=== PATIENT | male | born 1970 | race Caucasian/White ===

== ENCOUNTER 2017-12-23 15:33 | Outpatient (REF) | payer BC, SELFPAY ==
[2017-12-23 19:16] LABS: Cholesterol 233 mg/dL (50-200); HDL Cholesterol 28 mg/dL (40-60); LDL CHOLESTEROL 188 mg/dL (<100); Triglyceride 121 mg/dL (30-150)
== END 2017-12-23 15:53 ==
LOC: NCHCN 15:33
PROVIDERS: PCP Specialist/Technologist Athletic Trainer; Visit Provider Family Medicine
DX: E78.5 Hyperlipidemia, unspecified (principal)
CPT/HCPCS: 80061; 83721

== ENCOUNTER → 2020-04-23 01:10 | Outpatient (CLI) | payer BC, SELFPAY ==
--- NOTE | 2020-04-23 | DI.RAD_ITS ---
EXAM: XR LUMBAR SPINE COMPLETE CLINICAL HISTORY: LUMBAR RADICULOPATHY,M54.16. TECHNIQUE: 2D digital imaging was performed. COMPARISON: No exams were available for comparison FINDINGS: There is no evidence of fracture or listhesis nor pars interarticularis defects. There is an element of disc space narrowing at each level in the lumbosacral spinal column, most prom inent at L5-S1 and L4-5 levels. Anterior osseous lipping is noted L1-2 and L2-3 levels. Mild avionics systems integration specialist ior bony ridging evident at L4-5. This may indicate an element of stenosis. Mild facet arthropathy. Sacroiliac joints exhibit mild increased density bilaterally but no ankylosis. IMPRESSION: Multilevel degenerative disc disease. Possible element of sacroiliitis here. DATA REPOSITORY: RADIATION DOSE DELIVERED:
--- NOTE | 2020-04-23 | DI.RAD_ITS ---
EXAM: XR KNEE RT 3V AP,LAT,CASIE CLINICAL HISTORY: RT KNEE PAIN, M25.561. TECHNIQUE: 2D digital imaging was performed. COMPARISON: No exams were available for comparison FINDINGS: There is no evidence fracture but there is small amount of increased joint fluid. There is significa nt narrowing of the medial compartment and marginal osteophytes of the medial compartment. Also some degenerative changes in the patellofemoral compartment. Lateral compartment appears unremarkable. No osseous lesions. Bone density is age-appropriate IMPRESSION: Degenerative changes. Small joint effusion. DATA REPOSITORY: RADIATION DOSE DELIVERED:
== END ==
PROVIDERS: PCP Family Medicine; Visit Provider Family Medicine
DX: M17.11 Unilateral primary osteoarthritis, right knee (principal); M25.461 Effusion, right knee; M47.816 Spondylosis without myelopathy or radiculopathy, lumbar region
CPT/HCPCS: 73562; 72110

== ENCOUNTER 2020-05-15 01:17 | Outpatient (CLI) | payer BC, SELFPAY ==
--- NOTE | 2020-05-15 09:30 | DI.MRI_ITS ---
EXAM: MR LUMBAR SPINE WO CLINICAL HISTORY: LUMBAR RADICULOPATHY,M54.16. TECHNIQUE: Multiplanar multisequence MRI was performed. COMPARISON: CT CHEST FOR PE, ABD PELVIS W from 01/13/2017 CT CHEST FOR PE, ABD PELVIS W from 01/13/2017 MR MRI - CERVICAL SPINE WO CONT from 03/10/2017 CR XR LUMBAR SPINE COMPLETE from 04/23/2020 FINDINGS: Conus medullaris appears normal. No suspicious bony lesions. The T11-12 and T12-L1 levels are unrem arkable. At L1-2 and L2-3,, there is mild to moderate loss of disc height. There are mild disc osteophytes. No central canal stenosis or neural foraminal narrowing. At L3-4, there is minimal concentric disc bulging. No neural foraminal narrowing or central canal st enosis. At L4-5, there is moderate loss of disc height and disc osteophytes projecting circumferentially. Th ere is mild bilateral neural foraminal narrowing. No significant central canal stenosis. At L5-S1, there is marked loss of disc height. There are circumferentially projecting osteophytes. There is no central canal stenosis. There is mild bilateral neural foraminal narrowing. IMPRESSION: Degenerative disc changes causing mild bilateral neural foraminal narrowing at L4-5 and L5-S1. No f ocal disc herniation. DATA REPOSITORY:
== END 2020-05-15 01:37 ==
PROVIDERS: PCP Family Medicine; Visit Provider Family Medicine
DX: M47.816 Spondylosis without myelopathy or radiculopathy, lumbar region (principal); M48.061 Spinal stenosis, lumbar region without neurogenic claudication
CPT/HCPCS: 72148

== ENCOUNTER 2020-08-26 08:43 | Outpatient (CLI) | payer BC, SELFPAY ==
--- NOTE | 2020-08-26 06:00 | DI.RAD_ITS ---
Exam(s) XR PAIN CLINIC LUMBAR SP 2V EXAM: XR PAIN CLINIC LUMBAR SP 2V CLINICAL HISTORY: Dx: Lumbar Radiculopathy. TECHNIQUE: Fluoroscopy was provided for the referring physician for guidance with performing injecti on procedure. COMPARISON: No exams were available for comparison FINDINGS: Please see procedure note for details. Fluoro time 33.6 seconds RADIATION DOSE DELIVERED: malu Sullivan= 14.67 mGy
[2020-08-26 08:54] VITALS: BP 148/90; PULSE 79; RESP 18; TEMP 37.3; O2SAT 98
[2020-08-26 09:46] VITALS: BP 142/94; PULSE 78; RESP 17; O2SAT 98
--- NOTE | 2020-08-26 09:47 | PDOC.PAIN ---
Pain Clinic Procedure Note Procedure Note Procedure Note: Lumbar Epidural Steroid Injection Procedure Note Pre-operative diagnosis: lumbar radiculopathy Post-operative diagnosis: same as above COMMENTS: patient has low back pain and right leg pain, right knee pain. he is followed by orthopedic clinic and is scheduled to have a dedicated right knee MRI. patient has MRI L spine finding of L4-5 disc height loss and circumferential osteophytes. Patient was evaluated by Ms Jerrica De Luna APRN in pain clinic and referred for a trial of L4-5 LESI for both diagnostic and possibly therapeutic purposes. patient is aware that he may have two pain generators - lumbar radicular symptoms and right knee pathology. EDITH ALAN has been referred to the [facility] for lumbar epidural steroid injection. The patient was greeted by the nurse who verified patients name and . Patient was then taken to the fluoroscopy suite. The patient was interviewed and the medial record reviewed. There were no medical, pharmacologic, radiographic, or other structural contraindications to attempting fluoroscopically guided lumbar epidural steroid injection. Risks and expected side effects as well as potential benefits of the procedure were reviewed and voiced concerns expressed. The patient consent form was signed and witnessed. Standard patient time-out procedure was performed. The patient was placed in the prone position on the fluoroscopy table and automated blood pressure cuff and pulse oximeter applied. The skin entry point for entering/approaching the epidural space by a L4-5 and marked. Following thorough chlorhexadine preparation of the skin and draping and 1% lidocaine infiltration of the skin entry point and subcutaneous tissues, a 18 gauge Touhy needle was placed under fluoroscopic guidance and with loss of resistance technique into the epidural space. Needle tip placement and depth were aided and confirmed by fluoroscopy. There was no paresthesia or return of blood or CSF through the needle. 1 cc's of Omnipaque 240 was injected with clear epidural spread confirmed with fluoroscopy. 80mg depomedrol was injected. There was not any unusual discomfort expressed by EDITH ALAN. Patient's vital signs were stable throughout the procedure and were as recorded in nursing records. Follow up plans and appointments were discussed with patient. Post procedure instruction was given as documented in nursing records and having met discharge criteria and was discharged from the [facility]. COMMENTS: If this procedure is helpful, it can be completed up to 3 times per 12 months. Pre-procedure VAS score 7 out of 10. Post-procedure VAS score 3/10 Jay Jay Rutledge MD Pain Management
[2020-08-26] MEDS: methylPREDNISolone ACETATE 80 MG/ML VIAL IJ (11:08)
[2020-08-26] MEDS: Omnipaque 240 MG/ML 50 ML BTL IJ (11:08)
== END 2020-08-26 08:44 | disposition home or self-care (01) ==
LOC: PC 08:44
PROVIDERS: PCP Family Medicine; Visit Provider Internal Medicine
DX: M54.16 Radiculopathy, lumbar region (principal)
CPT/HCPCS: 62323; 72100; J1040; Q9967

== ENCOUNTER → 2020-09-15 02:10 | Outpatient (CLI) | payer BC, SELFPAY ==
--- NOTE | 2020-09-15 06:45 | DI.MRI_ITS ---
Exam(s) MR LOWER JOINT RT WO EXAM: MR LOWER JOINT RT WO CLINICAL HISTORY: KNEE PAIN, PRIMARY OA RT KNEE, INTERNAL DERANGEMENT,M17.11,M23.91. TECHNIQUE: Multiplanar multisequence MRI was performed. COMPARISON: CR XR KNEE RT 3V AP,LAT,CASIE from 04/23/2020 FINDINGS: BONES: It there are osteophytes from the femoral condyles and tibial plateaus. There is high signal in these subchondral region of the medial femoral condyle and medial tibial plateau, consistent with degenerative signal changes. JOINTS: Articular cartilage of the medial femoral condyle and medial tibial plateau are thin, extendi ng down to bone. The cartilage overlying the lateral femoral condyle colonic, lateral tibial plateau and patella appear intact.. No effusion is present. TENDONS: Extensor mechanism: Unremarkable. Medial retinaculum: Unremarkable. Lateral retinaculum: Unremarkable. Popliteus: Unremarkable. MUSCLES: Unremarkable. MENISCI: The medial meniscus is peripherally displaced in the body and the posterior horn is diminuti ve findings are consistent with severe degenerative change.. The lateral meniscus is unremarkable. SOFT TISSUES: Unremarkable. LIGAMENTS: Anterior Cruciate: Unremarkable. Posterior Cruciate: Unremarkable. Medial Collateral:Unremarkable. Lateral Collateral: Unremarkable. IMPRESSION: Severe degenerative changes of the medial femoral tibial joint and medial meniscus. DATA REPOSITORY:
== END ==
PROVIDERS: PCP Family Medicine; Visit Provider Student in an Organized Health Care Education/Training Program
DX: M17.11 Unilateral primary osteoarthritis, right knee (principal); M23.91 Unspecified internal derangement of right knee
CPT/HCPCS: 73721

== ENCOUNTER 2021-03-12 11:30 | Outpatient (CLI) | payer BC, SELFPAY ==
[2021-03-12 11:36] VITALS: BP 136/90; PULSE 92; RESP 18; TEMP 37.3; O2SAT 97
--- NOTE | 2021-03-12 12:30 | DI.RAD_ITS ---
Exam(s) XR PAIN CLINIC LUMBAR SP 2V EXAM: XR PAIN CLINIC LUMBAR SP 2V CLINICAL HISTORY: Dx: Lumbar Spondylosis TECHNIQUE: 2D and realtime digital imaging was performed. COMPARISON: No exams were available for comparison FINDINGS: C-arm fluoroscopy was utilized by Dr. Hassan during reported lumbar medial branch block. Hard copies s how injections on the right at what appear to be the L2-3, L3-4, and L4-5 levels. IMPRESSION: RADIATION DOSE DELIVERED: malu Sullivan=13.2 mGy
--- NOTE | 2021-03-12 12:34 | PDOC.PAIN_ITS ---
Pain Clinic Procedure Note Procedure Note Procedure Note: Lumbar/Sacral Medial Branch Blocks #1 Mario Ventura has been referred to the [facility] for lumbar/sacral medial branch blocks. COMMENTS: I evaluated the patient on 01/21/21. Pre-procedure pain VAS was 6/10. DX: Lumbosacral spondylosis without myelopathy Patient was interviewed and the medical record reviewed. There were no medical, pharmacologic, radiographic or other structural contraindications to attempting fluoroscopically guided local anesthetic lumbar/sacral medial branch blocks. Risks and expected side effects as well as potential benefit of the procedure were reviewed and voiced concerns addressed. The printed consent form was signed and witnessed. Standard time-out procedure was performed. Patient was placed in the prone position on the fluoroscopy table and automated blood pressure cuff and pulse oximeter applied. The skin entry points for approaching the anatomic target points of the segmental medial branches of right L2-L5 were identified with anfluoroscopy and marked. Following thorough Chlorhexadine preparation of the skin and draping and 1% lidocaine infiltration of the skin entry points and subcutaneous tissues, a 22 gauge spinal needle was placed under fluoroscopic guidance down on to the target point for each respective segmental medial branch.Position was confirmed in A/P, oblique and lateral views with 0.25ml of omnipaque 240. At this point I injected 0.5ml of 0.5% Bupivacaine at each sensory branch. Vital signs were stable throughout the procedure and were as recorded in the docflowsheet by the nursing staff. Follow up plans and appointments were discussed and was instructed to keep careful note of how the usual pain was modified by these injections. Specifically was asked to keep a pain diary for the next 24 hours using a numeric pain scale of 0-10 and report these results at the follow-up visit. Post procedure instruction was given as documented in the nursing documentation and having met discharge criteria. Patient was discharged from the [facility]. Based on the medial branches blocked today, if the patient has adequate relief and we are able to proceed to radiofrequency ablation, the treatment should result in the denervation of the right L3-L4, L4-L5 and L5-S1 FACET JOINTS. We would expect to denervate a total of 3 facets during the radiofrequency ablation. COMMENTS: Post-procedure pain VAS was 1/10. Stefan Hassan DO, MPH [facility]-Pain Management [facility] CC: Maylin Roberts V
[2021-03-12 12:35] VITALS: BP 141/85; PULSE 78; RESP 20; O2SAT 97
[2021-03-12] MEDS: Bupivacaine 0.5% Pres-Free 10 ML VIAL IJ (12:35)
[2021-03-12] MEDS: Omnipaque 240 MG/ML 50 ML BTL IJ (12:35)
== END 2021-03-12 11:31 | disposition home or self-care (01) ==
LOC: PC 11:30
PROVIDERS: PCP Family Medicine; Visit Provider Preventive Medicine Occupational Medicine
DX: M47.817 Spondylosis without myelopathy or radiculopathy, lumbosacral region (principal)
CPT/HCPCS: 64493; 64494; 64495; 72100; Q9967

== ENCOUNTER 2021-05-06 07:50 | Outpatient (CLI) | payer BC, SELFPAY ==
--- NOTE | 2021-05-06 06:00 | DI.RAD_ITS ---
Exam(s) XR PAIN CLINIC LUMBAR SP 2V EXAM: XR PAIN CLINIC LUMBAR SP 2V CLINICAL HISTORY: Dx: Lumbar Spondylosis TECHNIQUE: 2D and realtime digital imaging was performed. COMPARISON: No exams were available for comparison FINDINGS: C-arm fluoroscopy was utilized by Dr. Hassan. Hard copy show needle placement at multiple levels on th e right, from L2-3 through L5-S1.. IMPRESSION: RADIATION DOSE DELIVERED: malu Sullivan=15.99 mGy
[2021-05-06 07:57] VITALS: BP 154/90; PULSE 84; RESP 14; TEMP 37.1; O2SAT 95
--- NOTE | 2021-05-06 08:36 | PDOC.PAIN ---
Pain Clinic Procedure Note Procedure Note Procedure Note: Lumbar/Sacral Medial Branch Blocks Mario Ventura has been referred to the [facility] for lumbar/sacral medial branch blocks. COMMENTS: He had his first LMBB at these levels on 03/12/21 and did exceedingly well. Pre-procedure pain VAS was 7/10. Dx: Lumbosacral spondylosis without myelopathy Patient was interviewed and the medical record reviewed. There were no medical, pharmacologic, radiographic or other structural contraindications to attempting fluoroscopically guided local anesthetic lumbar/sacral medial branch blocks. Risks and expected side effects as well as potential benefit of the procedure were reviewed and voiced concerns addressed. The printed consent form was signed and witnessed. Standard time-out procedure was performed. Patient was placed in the prone position on the fluoroscopy table and automated blood pressure cuff and pulse oximeter applied. The skin entry points for approaching the anatomic target points of the segmental medial branches of right L2-L5 were identified with anfluoroscopy and marked. Following thorough Chlorhexadine preparation of the skin and draping and 1% lidocaine infiltration of the skin entry points and subcutaneous tissues, a 22 gauge spinal needle was placed under fluoroscopic guidance down on to the target point for each respective segmental medial branch.Position was confirmed in A/P, oblique and lateral views with 0.25ml of omnipaque 240. Coult be this method .5ml 0.5% Bupivacaine was injected or 1% Lidocaine. Vital signs were stable throughout the procedure and were as recorded in the docflowsheet by the nursing staff. Follow up plans and appointments were discussed and was instructed to keep careful note of how the usual pain was modified by these injections. Specifically was asked to keep a pain diary for the next 4 hours using a numeric pain scale of 0-10 and report these results at the follow-up visit. Post procedure instruction was given as documented in the nursing documentation and having met discharge criteria. Patient was discharged from the [facility]. Based on the medial branches blocked today, if the patient has adequate relief and we are able to proceed to radiofrequency ablation, the treatment should result in the denervation of the right L3-L4, L4-L5, and L5-S1 FACET JOINTS. We would expect to denervate a total of 4 facets during the radiofrequency ablation. COMMENTS: Post-procedure pain VAS was 3/10. Stefan Hassan DO, MPH [facility] [place] CC: Maylin Roberts V
[2021-05-06] MEDS: Omnipaque 240 MG/ML 50 ML BTL IJ (08:39)
[2021-05-06 08:40] VITALS: BP 137/94; PULSE 83; RESP 18; O2SAT 96
[2021-05-06] MEDS: Lidocaine 2% Pres-Free 5 ML VIAL IJ (08:40)
== END 2021-05-06 07:51 | disposition home or self-care (01) ==
LOC: PC 07:50
PROVIDERS: PCP Family Medicine; Visit Provider Preventive Medicine Occupational Medicine
DX: M47.817 Spondylosis without myelopathy or radiculopathy, lumbosacral region (principal)
CPT/HCPCS: 64493; 64494; 64495; 72100; Q9967

== ENCOUNTER 2021-05-27 15:22 | Outpatient (CLI) | payer BC, SELFPAY ==
--- NOTE | 2021-05-27 06:00 | DI.RAD_ITS ---
Exam(s) XR PAIN CLINIC LUMBAR SP 2V EXAM: XR PAIN CLINIC LUMBAR SP 2V CLINICAL HISTORY: Dx:Lumbar Spondylosis TECHNIQUE: 2D and realtime digital imaging was performed. COMPARISON: No exams were available for comparison FINDINGS: C-arm fluoroscopy was utilized by Dr. Hassan during reported medial branch block. Hard copy show needl e placement on the right at what appear to be the L2-3, L3-4, L4-5, L5-S1. IMPRESSION: RADIATION DOSE DELIVERED: malu Sullivan=22.47 mGy
[2021-05-27 15:29] VITALS: BP 138/87; PULSE 71; RESP 20; TEMP 36.1; O2SAT 98
[2021-05-27] MEDS: fentaNYL 100 MCG/2 ML VIAL IVP ×2 (15:59→16:13)
[2021-05-27] MEDS: Midazolam 2 MG/2 ML VIAL IVP (16:00)
[2021-05-27 16:25] VITALS: BP 138/90; PULSE 76; RESP 16; O2SAT 94
--- NOTE | 2021-05-27 16:31 | PDOC.PAIN_ITS ---
Pain Clinic Procedure Note Procedure Note Procedure Note: Right Lumbar Radiofrequency with Coolief Machine PROCEDURE NOTE Date of Service: May 27, 2021 Patient: Mario Ventura Provider: Stefan Hassan DO, MPH Pre Operative Diagnosis: Lumbosacral Spondylosis without Myelopathy Post Operative Diagnosis: Same Post procedure pain; VAS= 7/10 PROCEDURE: Radiofrequency Ablation of medial branches - RT L2 L3 L4 L5 and lateral branch of the right S1. Mario Ventura was brought into the fluoroscopy suite and positioned into the prone position on the fluoroscopy table and allowed to adjust to a position of comfort. A grounding pad was placed on the left thigh. The lumbar region was widely prepped with a chloraprep solution, allowed to air dry and draped in standard sterile surgical fashion. Local anesthesia was provided by 4 mL of 2% Lidocaine delivered with a 25g needle. A 17g 100 mm radiofrequency introducer needle was placed to the planned anatomic targets guided with intermittent fluoroscopy with a perpendicular approach to terminally place at the junction of the superior articular process and the transverse process of the right L3 L4 L5, the base of the sacral ala on the right for the L5 medial branch nerve and the area between base of the sacral ala to the S1 foramen on the right. The stylets were removed and radiofrequency probes with a 4mm active tip were then inserted. Needle tip position of the probes was verified in the AP, oblique, and lateral views. At each site, the me dial branch nerve was stimulated at 2 Hz to a maximum 1-2 volts determined to finalize safe needle and electrode placement. The patient was awake and responsive during this portion of the procedure. Each target was anesthetized with 1-2 mL of 2% Lidocaine for anesthesia for lesioning and then each target was lesioned at 80 degrees Celsius for 2 minutes and 30 seconds. Tissue impedences were noted to be between 250 and 500 Ohms. Electrodes and needles were then removed and bandages placed over the needle placement sites, the patient then returned to the supine position on a stretcher and transported to the recovery room without hemodynamic, neurologic, or allergic reactions. Fluoroscopic images were printed for hard copy recording and digitally archived. POST PROCEDURE EVALUATION: IMPRESSION: 1. Summary of procedure. Medication given is documented in the MAR. 2. The patient will be contacted in 1-3 weeks 3. Estimated Blood Loss: <5 mls 4. Fluoroscopy time: Documented in the EMR. Follow up plans and appointments were discussed with the Mario . Post procedure instruction was given as documented in nursing documentation and having met discharge criteria, Mario was discharged from the Pain Management Center. COMMENTS: No apparent complications. Post-procedure pain: VAS= 5/10. F/U with our office as needed. I personally performed this entire procedure. Stefan Hassan DO, MPH Attending Physician Pain Management
[2021-05-27] MEDS: methylPREDNISolone ACETATE 40 MG/ML VIAL IJ (16:56)
[2021-05-27] MEDS: Lidocaine 2% Pres-Free 5 ML VIAL IJ (16:56)
[2021-05-27] MEDS: Bupivacaine 0.5% Pres-Free 10 ML VIAL IJ (16:56)
== END 2021-05-27 15:23 | disposition home or self-care (01) ==
LOC: PC 15:22
PROVIDERS: PCP Family Medicine; Visit Provider Preventive Medicine Occupational Medicine
DX: M47.817 Spondylosis without myelopathy or radiculopathy, lumbosacral region (principal)
CPT/HCPCS: 64635; 64636; 72100; J1030; J2250; J3010

== ENCOUNTER 2023-02-11 10:47 | Outpatient (REF) | payer BC, OTHER, SELFPAY ==
[2023-02-11 16:22] LABS: ESR 8 mm/hr (0-20)
[2023-02-11 16:23] LABS: HCT 49.1 % (40.0-50.0); HGB 16.1 g/dL (13.5-17.5); MCH 30.8 pg (27.0-33.0); MCHC 32.8 % (32.0-36.0); MCV 94 fL (80-95); MPV 10.2 fL (8.0-11.0); Platelet Count 310 10^3/uL (130-400); RBC 5.23 10^6/uL (4.36-5.78); RDW 12.5 % (11.8-14.1); RDW-SD 43.6 fL; WBC 6.07 10^3/uL (4.4-10.8)
[2023-02-11 16:53] LABS: ALT 48 U/L (16-63); AST 19 U/L (15-37); Albumin 4.1 g/dL (3.4-5.0); Alkaline Phosphatase 77 U/L (46-116); Anion Gap 4.9 mmol/L (3-11); BUN 13 mg/dL (7-18); Bilirubin, Total 0.5 mg/dL (0.2-1.0); CO2 31.1 mmol/L (21.0-32.0); Calcium 9.5 mg/dL (8.5-10.1); Calculated LDL 191 mg/dL (<100); Chloride 104 mmol/L (98-107); Cholesterol 256 mg/dL (<200); Estimated GFR 89.44 (mL/min/1.73m2); Glucose 104 mg/dL (74-106); HDL Cholesterol 31 mg/dL (40-60); Potassium 4.5 mmol/L (3.5-5.1); Sodium 140 mmol/L (136-145); Total Protein 7.8 g/dL (6.4-8.2); Triglyceride 171 mg/dL (<150)
[2023-02-11 17:07] LABS: Creatine Kinase 117 U/L (39-308)
== END 2023-02-11 10:48 | disposition home or self-care (01) ==
LOC: NCHCN 10:47
PROVIDERS: PCP Family Medicine; Visit Provider Family Medicine
DX: Z00.00 Encounter for general adult medical examination without abnormal findings (principal); Z13.220 Encounter for screening for lipoid disorders; Z13.228 Encounter for screening for other metabolic disorders; Z13.29 Encounter for screening for other suspected endocrine disorder
CPT/HCPCS: 80053; 80061; 82550; 85027; 85652; 84443

== ENCOUNTER → 2023-02-14 03:19 | Outpatient (CLI) | payer BC, OTHER, SELFPAY ==
--- NOTE | 2023-02-14 | DI.RAD_ITS ---
Exam(s) XR LUMBAR SPINE COMPLETE EXAM: XR LUMBAR SPINE COMPLETE CLINICAL HISTORY: RADICULOPATHY,M54.17. TECHNIQUE: 2D digital imaging was performed of the lumbar spine. Five images were obtained. AP, la teral, right oblique, left oblique and L5-S1 spot views were obtained. COMPARISON: CR XR LUMBAR SPINE COMPLETE from 04/23/2020 FINDINGS: BONES: No fracture or destructive lesion. There are endplate osteophytes at multiple levels of the murali mbar spine particularly at L1-2 and L2-L3. There is mild facet arthropathy. DISKS: Disc space narrowing is seen at L1-L2, L2-L3, L4-L5 and L5-S1. ALIGNMENT: Lumbar spinal alignment is within normal limits. No spondylolysis or spondylolisthesis. SOFT TISSUE: Vascular calcification is present. IMPRESSION: Stable degenerative changes in the lumbar spine. DATA REPOSITORY: RADIATION DOSE DELIVERED:
== END ==
PROVIDERS: PCP Family Medicine; Visit Provider Family Medicine
DX: M51.36 Other intervertebral disc degeneration, lumbar region (principal)
CPT/HCPCS: 72110

== ENCOUNTER 2023-04-29 10:18 | Outpatient (REF) | payer BC, OTHER, SELFPAY ==
[2023-04-29 15:58] LABS: Calculated LDL 137 mg/dL (<100); Cholesterol 193 mg/dL (<200); HDL Cholesterol 27 mg/dL (40-60); Triglyceride 145 mg/dL (<150)
== END 2023-04-29 10:19 | disposition home or self-care (01) ==
LOC: NCHCN 10:18
PROVIDERS: PCP Family Medicine; Visit Provider Family Medicine
DX: E78.5 Hyperlipidemia, unspecified (principal)
CPT/HCPCS: 80061